=== PATIENT | male | born 1960 | race Caucasian/White ===

== ENCOUNTER 2020-04-24 19:12 | Outpatient (REF) | payer OTHER, SELFPAY ==
[2020-04-24 21:27] LABS: BUN 22 mg/dL (7-18); Calculated LDL 124 mg/dL (<100); Chloride 106 mmol/L (98-107); Cholesterol 175 mg/dL (<200); Glucose 94 mg/dL (74-106); HDL Cholesterol 32 mg/dL (40-60); Potassium 4.3 mmol/L (3.5-5.1); Sodium 142 mmol/L (136-145); Triglyceride 97 mg/dL (<150)
[2020-04-26 08:54] LABS: PSA, Screening 0.6 ng/mL (0.0-3.5)
== END 2020-04-24 19:32 ==
LOC: NCHCN 19:12
PROVIDERS: PCP Internal Medicine; Visit Provider Internal Medicine
DX: Z00.00 Encounter for general adult medical examination without abnormal findings (principal); E66.9 Obesity, unspecified; Z12.5 Encounter for screening for malignant neoplasm of prostate; Z13.1 Encounter for screening for diabetes mellitus
CPT/HCPCS: 80048; 80061; 84153

== ENCOUNTER 2020-05-13 07:03 | Outpatient (CLI) | payer OTHER, SELFPAY ==
[2020-05-15 07:52] LABS: COVID-19 RT-PCR Result NEGATIVE (Negative)
== END 2020-05-13 07:23 ==
PROVIDERS: PCP Internal Medicine; Visit Provider Surgery
DX: Z01.818 Encounter for other preprocedural examination (principal)
CPT/HCPCS: U0003

== ENCOUNTER 2020-05-17 06:10 | Day surgery (SDC) | payer OTHER, SELFPAY ==
[2020-05-17] VITALS (9 sets, daily range): BP systolic 114–147; BP diastolic 67–95; PULSE 54–68; RESP 12–25; TEMP 36.2–36.6; O2SAT 94–99
--- NOTE | 2020-05-17 05:59 | W.PM.OP ---
Date of service: 05/17/20 Time of Service: 08:26 Operative Note Operative Note DATE OF PROCEDURE: 05/17/20 PRE-OP DIAGNOSIS: Left inguinal hernia POST-OP DIAGNOSIS: other (Left direct inguinal hernia) PROCEDURE: Left inguinal hernia repair with mesh SURGEON: Mara Sanchez PARCEL WRAPPER: Concetta Yu ANESTHESIA: regional (Left TAP block), local (1% Lidocaine) and other (Gneral with LMA/ ASA 2/ Remigio Covington CRNA) ESTIMATED BLOOD LOSS: 10 PATHOLOGY: none sent COMPLICATIONS: None Patient was transported to: PACU Patient's condition: stable Implants: [employer] LOT [id number] [id number] EXP 2024-02-22 Indications: Mr. Tran is a pleasant 59-year-old gentleman who is here today for some left-sided groin pain. He states that he feels pressure on the left side especially when standing for long periods of time. Sometimes he feels a pinching sensation when walking. He has been having symptoms for about 6 months. 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 He was seen by his primary care physician who thought maybe that he had a hernia. He denies any urinary symptoms or any changes in his bowel habits. He has not had any abdominal surgeries in the past. Findings: Small direct hernia Procedure Description: After informed consent was obtained the patient was taken to the operating room and placed in a supine position. Monitors and SCDs were applied and a timeout was done. The patient's name, date of , procedure type, procedure site, allergies to medications, preoperative antibiotic, and DVT prophylaxis were all reviewed. Fire risk was assessed. Next anesthesia did a tap block on the left side under ultrasound guidance. Please see their separate dictation. Once anesthesia was done the abdomen was prepped and draped in a sterile surgical fashion. 1% lidocaine was injected into the dermis in the left lower quadrant. An incision was made with a 15 blade in the left lower quadrant. Dissection was done with cautery through the subcutaneous tissues and Saturnino's fascia down to the external oblique fascia. The external ring was identified and the external oblique fascia was opened sharply through the external ring. The cut fascia was grasped with hemostats, the cord structures were identified and a Ajo drain was placed around them. The cremasteric muscle was dissected away from the cord structures using cautery. A direct hernia was identified. There was no idirect hernia or hernia sac noted. The ileoinguinal nerve was identified and cut. A 3 x 6 piece of mesh was then cut to size and attached to the lacunar ligament using a 2-0 Prolene double armed suture. The mesh was secured laterally and medially with a 2-0 Prolene, with a running suture. The tails of the mesh were wrapped around the cord structures effectively cinching down the internal ring. Once the mesh was secured the tissues were irrigated with some normal saline. No bleeding was identified. The external oblique fascia was re-approximated using 2-0 Vicryl running suture. The Saturnino's fascia was re-approximated using interrupted 3-0 Vicryl. The dermis was re-approximated with a running 4-0 Vicryl. The skin was cleaned and dried and skin affix was applied. The patient was woken up and taken back to recovery in stable condition. There were no immediate complications. Sponge, instrument and needle counts were correct at the end of the case x2.
--- NOTE | 2020-05-17 06:01 | W.PM.DSUDISC ---
Discharge Plan Disposition Patient Disposition: HOME Condition: Stable Discharge Details Reason For Visit: L INGUINAL HERNIA Attending Provider: Mara Sanchez Primary Care Provider: Balaji Lao Home Meds and New Rx's Prescriptions: New acetaminophen [Tylenol] 325 mg tablet 650 mg PO Q6H PRN (Reason: pain) Qty: 30 RF: 0 ibuprofen 600 mg tablet 600 mg PO Q6H PRN (Reason: pain) Qty: 30 RF: 0 hydrocodone-acetaminophen [[place]] 5-325 mg tablet 1 tab PO Q6H PRNQty: 14 RF: 0 Continued Centrum Silver 1 EACH tablet 1 tab PO DAILY RF: 0 fexofenadine-pseudoephedrine 180-240 mg Tablet Extended Release 24 Hr 1 tab PO QAM PRNRF: 0 Discharge Instructions Instructions: Open Herniorrhaphy (DC) Additional Instructions: Activity at Home after surgery: 1. Make sure you walk outside at least 4 times per day 2. You should be able to climb a flight of stairs 3. No driving while in pain or taking pain medications 4. No strenuous activity or heavy lifting for 4 weeks (open surgery) Diet, Nutrition, & wound healin. Avoid alcohol until after you are recovered from your surgery 2. Make sure to eat plenty of lean protein (meat, fish, eggs, cottage cheese, beans) 3. Eat a variety of fruits and vegetables. Eat plenty of high fiber foods to avoid constipation. 4. Drink plenty of liquids to stay hydrated and avoid constipation Pain Medications: 1. Tylenol 650 mg and Ibuprofen 600 mg every 6 hours. For better results alternate both medications every 3 hours 2. If a narcotic has been prescribed take as directed only for breakthrough pain For Constipation: 1. Take Milk of Magnesia or MiraLax as needed for constipation Other: 1. You may shower daily. Do not scrub the incisions 2. Do not soak the incisions for 1 week 3. You may alternate ice and heat as needed for pain and swelling Wound Care: 1. Keep the incisions clean and dry Please call our office if you develop: 1. Fevers >101.5 2. Nausea or Vomiting 3. Worsening pain 4. Redness and thick discharge from the wounds If after hours please call the Hospital at and ask to speak to the on-call surgeon Referrals: Mara Sanchez MD [ [facility]YS[facility]IAN] - Activity:: No lifting, pulling or pushing >20 lb x 4 weeks Remove Dressings/Wound Care:: Do Not Remove Shower/Bathe:: 24 hours Diet:: As Tolerated Discharge Orders Discharge Orders: Discharge Order (Routine); Ordered 05/17/20 Ordered By: Mara Sanchez
[2020-05-17] MEDS: Lactated Ringers 1,000 ML 80 ML IV (06:50)
[2020-05-17] MEDS: ceFAZolin 2 GM/50 ML BAG IVPB (07:24)
[2020-05-17] MEDS: Bupivacaine 0.25% Pres-Free 30 ML VIAL (07:40)
[2020-05-17] MEDS: Bupivacaine LIPOSOME/PF 133 MG/10 ML VIAL IJ (07:40)
[2020-05-17] MEDS: Lidocaine 1% Multi-Dose 50 ML VIAL (07:58)
[2020-05-17] MEDS: fentaNYL 100 MCG/2 ML VIAL IVP (09:09)
[2020-05-17] MEDS: oxyCODONE 5 MG TAB PO (09:59)
== END 2020-05-17 10:52 | disposition home or self-care (01) ==
LOC: SUR 06:10
PROVIDERS: PCP Internal Medicine; Visit Provider Surgery
PROC: (CPT 49505; principal; 2020-05-17 07:30)
DX: K40.90 Unilateral inguinal hernia, without obstruction or gangrene, not specified as recurrent (principal); G89.18 Other acute postprocedural pain; F17.210 Nicotine dependence, cigarettes, uncomplicated
CPT/HCPCS: 49505; 76942; C1781; J0690; J1100; J1885; J2001; J2250; J2405; J2704; J3010

== ENCOUNTER 2021-03-24 16:24 | Emergency (ER) | payer OTHER, SELFPAY ==
[2021-03-24] VITALS (51 sets, daily range): BP systolic 107–170; BP diastolic 65–93; PULSE 59–88; RESP 10–21; TEMP 36.7; O2SAT 82–100
--- NOTE | 2021-03-24 16:15 | RT.EKG_ITS ---
APPROVED REPORT Exam: Resting ECG Reason for Exam: severe abdominal pain Patient Location: E HR:70 bpm ECG Measurements Heart Rate 70 AXIS MI 120 P -50 QRSd 93 QRS -33 QT 401 T 65 QTc 433 Conclusion Sinus or ectopic atrial rhythm...P axis (-45,135) Left axis deviation...QRS axis (-30,-90) Low voltage, extremity leads...all extremity leads <0.5mV. No STEMI. I have reviewed and interpreted ECG and agree with software generated interpretation.
--- NOTE | 2021-03-24 16:30 | DI.CT_ITS ---
Exam(s) CT ABDOMEN PELVIS W EXAM: CT ABDOMEN PELVIS W CLINICAL HISTORY: RLQ groin pain TECHNIQUE: Imaging Protocol: Axial computed tomography images with coronal and sagittal reformatted images were created and reviewed CONTRAST MATERIAL: Intravenous: Omnipaque 350 Contrast volume:100 mL Oral: No COMPARISON: No exams were available for comparison FINDINGS: ABDOMEN: Lung Bases: Normal where visualized. Liver: Normal density. No measurable mass. Portal, Superior Mesenteric, and Splenic Veins: Unremarkable. Gallbladder and Biliary Tract: No radiodense calculus or dilation. Pancreas: Normal density, no abnormal calcifications or inflammatory process. Spleen: Normal. Adrenals: No masses seen. Kidneys: There is an absent left kidney. There is a 5 mm stone at the right ureteral vesicular junct ion causing moderate hydronephrosis. No masses seen. Abdominal Aorta: Abdominal portion non-dilated. [id number]-qt-ikmngkog atherosclerosis. Bowel: No obstruction or bowel wall thickening. No evidence of acute appendicitis. There are few sca ttered diverticula but no evidence of acute diverticulitis. Peritoneal Cavity: No ascites, collection or mesenteric inflammatory response. No free air. Lymph Nodes: Within normal limits. Bones: Within normal limits for the patient's age. Soft Tissues: Small fat containing right inguinal hernia. PELVIS: Bladder: Symmetric distention, no gross wall thickening. Reproductive Organs: Mildly enlarged prostate gland. Lymph Nodes: Within normal limits. Bones: Within normal limits for the patient's age. IMPRESSION: 1. Solitary right kidney. 2. Moderate right hydronephrosis secondary to a 5 mm right UVJ stone. Given that this is the patient 's only kidney, urology consultation is recommended. RADIATION DOSE DELIVERED: 1,025.93mGy.cm Total DLP DATA REPOSITORY: All CT scans at this facility are submitted to the National Radiology Data Registry (NRDR) Dose Index Registry (DIR) with the [employer] (ACR). RADIATION OPTIMIZATION: All CT scans at this facility use at least one of these dose optimization te chniques: automated exposure control; mA and/or kV adjustment per patient size (includes targeted exa ms where dose is matched to clinical indication); or iterative reconstruction.
--- NOTE | 2021-03-24 16:30 | W.ED.GENAD ---
Discharge Plan Discharge Details Chief Complaint: Abd Prob Primary Care Provider: Balaji Lao ED Provider: Maegan Corrales Home Meds and New Rx's Prescriptions: No Action Centrum Silver 1 EACH tablet 1 tab PO DAILY RF: 0 fexofenadine-pseudoephedrine 180-240 mg Tablet Extended Release 24 Hr 1 tab PO QAM PRNRF: 0 Medical Decision Making Given patient's obstructive uropathy and a single kidney, it is recommended that patient have a stent placed, case discussed with Dr. Solorio on-call for [facility] who recommends transfer to [facility] Dr. Allen accepted patient in transfer, patient stable throughout encounter although did have oxygen desaturation to 78% after 0.5 of Dilaudid, patient is agreeable to transport and is tolerating 1 L of oxygen well, he was in no distress with this slight desaturation No evidence of secondary infection Requested urology, [facility], patient was transferred to the emergency room with likely trip to the OR for stent meds, patient will strain urine EMS called for transport, patient is full CODE STATUS No exam findings consistent with COVID-19 Differential Diagnosis Differential Diagnosis: Ureterolithiasis, inguinal hernia, appendicitis, urinary tract infections HPI General Mode of arrival: ambulatory. Date/Time Provider Initiated Documentation: 03/24/21 16:30. Limitations to Documentation: no limitations. Information obtained by: patient. HPI Narrative: This 60-year-old gentleman presents with report of right lower quadrant abdominal pain which came on abruptly today while he was stacking pavers. He denies any additional injuries. He denies any urinary complaints or hematuria. He denies any radiation of pain. He has had nausea with 2 episodes of vomiting. He denies fever or chills. He felt fine this morning. Denies known exacerbating or alleviating factors. He denies prior history of similar symptoms in the past. Related Data Home Medications Medication Instructions Recorded Confirmed Centrum Silver 1 tab PO DAILY 02/12/16 03/24/21 fexofenadine-pseudoephedrine 1 tab PO QAM PRN 05/15/20 03/24/21 Allergies Allergy/AdvReac Type Severity Reaction Status Date / Time tunafish Allergy Severe Hives Uncoded 03/24/21 16:38 Review of Systems Narrative: Review of systems obtained x7 aside from where indicated in HPI [facility] Medical History (Updated 06/06/20 @ 09:39 by Mara Sanchez MD) Abscess of groin, right Adenomatous colon polyp Left inguinal hernia Obesity Right inguinal hernia Smoker Surgical History (Updated 06/06/20 @ 09:39 by Mara Sanchez MD) Incision & Drainage, Abscess or Hematoma S/P inguinal hernia repair using synthetic patch (~05/17/20) Family History Other Essential hypertension Heart disease Prostate cancer Stroke Social History Smoking/Tobacco Use Status: Current every day Tobacco Type: cigarettes Years smoked: 40 Smoking risk assessment performed?: Yes Alcohol Intake: current Alcohol Intake frequency: a few times a week Alcohol type: beer Drug use: Never Substance use type: does not use Current gender identity: male Do you feel safe at home: Yes Do you feel safe in your relationship?: Yes Exam Const General: cooperative and in distress Chest Chest: normal inspection of the chest Resp Effort & Inspection: normal respiratory effort Auscultation: clear to auscultation bilaterally Cardio Rate: regular rate Rhythm: regular rhythm GI Other: No abdominal bruit or pulsatile mass, right inguinal and lower quadrant tenderness, no right CVA tenderness Other: No palpable hernia Skin General skin exam: no rashes or lesions noted Neuro General: patient alert and patient oriented x3
[2021-03-24] MEDS: fentaNYL 100 MCG/2 ML VIAL 50 MCG IVP (16:41)
[2021-03-24 16:55] LABS: Abs Immature Grans 0.02 10^3/uL (0.0-0.06); Absolute Basophil Count 0.02 10^3/uL (0.0-0.2); Absolute Eosinophil Count 0.03 10^3/uL (0.0-0.7); Absolute Lymphocyte Count 1.65 10^3/uL (1.2-3.4); Absolute Monocyte Count 0.78 10^3/uL (0.1-0.8); Absolute Neutrophil Count 6.82 10^3/uL (1.2-6.7); Basophils % 0.2; Eosinophils % 0.3; HCT 47.5 % (40.0-50.0); HGB 15.7 g/dL (13.5-17.5); Immature Grans % 0.2; Lymphocytes % 17.7; MCH 29.9 pg (27.0-33.0); MCHC 33.1 % (32.0-36.0); MCV 90.5 fL (80-95); MPV 10.1 fL (8.0-11.0); Monocytes % 8.4; Neutrophils % 73.2; Nucleated RBC 0 %; Platelet Count 221 10^3/uL (130-400); RBC 5.25 10^6/uL (4.36-5.78); RDW 12.9 % (11.8-14.1); RDW-SD 42.9 fL; WBC 9.32 10^3/uL (4.4-10.8)
[2021-03-24] MEDS: Normal Saline 1,000 ML 1000 ML IV (16:58)
[2021-03-24] MEDS: Ondansetron 4 MG/2 ML VIAL IVP (16:58)
[2021-03-24 17:06] LABS: Lipase 86 U/L (73-393)
[2021-03-24 17:09] LABS: ALT 21 U/L (16-63); AST 28 U/L (15-37); Albumin 3.9 g/dL (3.4-5.0); Alkaline Phosphatase 87 U/L (46-116); Anion Gap 5.4 mmol/L (3-11); BUN 20 mg/dL (7-18); Bilirubin, Total 0.5 mg/dL (0.2-1.0); CO2 29.6 mmol/L (21.0-32.0); CREATININE 1.2 mg/dL (0.70-1.30); Calcium 8.8 mg/dL (8.5-10.1); Chloride 105 mmol/L (98-107); Glucose 110 mg/dL (74-106); Potassium 3.7 mmol/L (3.5-5.1); Sodium 140 mmol/L (136-145); Total Protein 6.7 g/dL (6.4-8.2)
[2021-03-24] MEDS: Omnipaque 350 MG/ML 100 ML BTL IJ (17:40)
[2021-03-24] MEDS: Normal Saline - Diluent 50 ML VIAL IV (17:40)
[2021-03-24] MEDS: Normal Saline Flush 10 ML SYR IVP (17:41)
[2021-03-24 17:53] LABS: Bilirubin Negative (Negative); Blood Moderate (Negative); Clarity Clear (Clear); Glucose Negative (Negative); Ketones Negative (Negative); Leukocyte Esterase Negative (Negative); Nitrite Negative (Negative); Urobilinogen 0.2 EU/dL (Up TO 0.2); pH 5.5 (5-8)
[2021-03-24 18:02] LABS: Bacteria Negative HPF (Negative); C & S Indicated? No; Crystals Negative HPF (Negative); Epithelial Cells Negative HPF (Negative); Mucus Negative (Negative); WBC Negative HPF (0-5)
--- NOTE | 2021-03-24 18:26 | DI.VRAD_ITS ---
PROCEDURE INFORMATION: Exam: CT Abdomen And Pelvis With Contrast Exam date and time: 03/24/2021 4:44 PM Age: 60 years old Clinical indication: Abdominal pain; Prior surgery; Surgery type: Hernia TECHNIQUE: Imaging protocol: Computed tomography of the abdomen and pelvis with contrast. Total images: 1233 Contrast material: OMNIPAQUE 350; Contrast volume: 100 ml; Contrast route: INTRAVENOUS (IV); COMPARISON: No relevant prior studies available. FINDINGS: Lungs: Mild atelectasis in the lung bases. Heart: Heart size normal. Mediastinal space: The visualized distal esophagus is normal. Liver: Normal contour. No mass lesions. No intrahepatic biliary ductal dilatation. Gallbladder and bile ducts: Normal. No calcified stones. No ductal dilation. Pancreas: Normal. No inflammatory changes or ductal dilation. Spleen: Normal. No splenomegaly. Adrenal glands: Normal. No adrenal mass. Kidneys and ureters: Left kidney is absent, presumably congenitally absent. Moderate-severe right hydronephrosis and hydroureter. There is a 5 mm right UVJ stone best seen on axial thin series 7, image 676. Mild right perinephric stranding. No focal renal cortical lesions. The vascular enhancement pattern of the right kidney seems somewhat delayed relative to the equilibrium phase pattern of the other organs, raising concern for high-grade obstruction although there is no left kidney for comparison. Given that this is the patient's only kidney, urologic consultation recommended. Stomach and bowel: The stomach is largely contracted without gross abnormality. The small bowel is nondilated with no gross abnormality. No acute colonic abnormalities. Mild diverticulosis involving the distal colon without evidence of acute diverticulitis. Appendix: The appendix is normal in caliber and demonstrates no evidence of appendicitis. Intraperitoneal space: No free fluid or air. Vasculature: Moderate calcific atherosclerosis. No aneurysm. Lymph nodes: No adenopathy. Urinary bladder: Unremarkable as visualized. Reproductive: Mildly enlarged prostate. Bones/joints: No acute osseous abnormalities. Soft tissues: Small fatty right inguinal hernia. No bowel herniation. No gross signs of strangulation. IMPRESSION: 1. The right kidney is the patient's only kidney. The left is absent. 2. There is moderate-severe right hydronephrosis and hydroureter with a 5 mm right UVJ stone. 3. The vascular enhancement pattern of the right kidney is somewhat delayed for the equilibrium phase bolus, and in combination with the degree of hydronephrosis, this raises concern for high-grade obstruction. Given that this is the patient's only kidney, urology consultation is recommended. 4. Additional non-emergent findings detailed above. Dictated and Authenticated by: Rigo Dill MD. Ordering:JANINE Issa MD
[2021-03-24] MEDS: HYDROmorphone 2 MG/ML VIAL 0.5 MG IVP (18:42)
== END 2021-03-24 22:10 | disposition short-term general hospital (02) ==
PROVIDERS: Emergency Provider Physician Assistant; PCP Internal Medicine
DX: N20.1 Calculus of ureter (principal)
CPT/HCPCS: 36415; 80053; 83690; 93005; 96361; 96374; 96375; 96376; 99285; 74177; 81003; 81015; 85025; 93010; 99284; J2405; J3010; J3490

== ENCOUNTER 2022-12-25 15:43 | Outpatient (REF) | payer OTHER, SELFPAY ==
[2022-12-25 21:26] LABS: HCT 50.6 % (40.0-50.0); HGB 16.6 g/dL (13.5-17.5); MCH 29.8 pg (27.0-33.0); MCHC 32.8 % (32.0-36.0); MCV 91 fL (80-95); Platelet Count 196 10^3/uL (130-400); RBC 5.57 10^6/uL (4.36-5.78); RDW 12.8 % (11.8-14.1); RDW-SD 42.8 fL; WBC 8.44 10^3/uL (4.4-10.8)
[2022-12-25 21:44] LABS: ALT 20 U/L (16-63); AST 21 U/L (15-37); Albumin 3.8 g/dL (3.4-5.0); Alkaline Phosphatase 102 U/L (46-116); Anion Gap 8.2 mmol/L (3-11); BUN 22 mg/dL (7-18); Bilirubin, Total 0.5 mg/dL (0.2-1.0); CO2 29.8 mmol/L (21.0-32.0); CREATININE 0.9 mg/dL (0.70-1.30); Calcium 9.2 mg/dL (8.5-10.1); Chloride 102 mmol/L (98-107); Estimated GFR 97.17 (mL/min/1.73m2); Glucose 98 mg/dL (74-106); Potassium 4.6 mmol/L (3.5-5.1); Sodium 140 mmol/L (136-145); Total Protein 6.8 g/dL (6.4-8.2)
[2022-12-26 18:56] LABS: PSA, Screening 0.7 ng/mL (<=4.5)
== END 2022-12-25 15:44 | disposition home or self-care (01) ==
LOC: NCHCN 15:43
PROVIDERS: PCP Internal Medicine; Visit Provider Nurse Practitioner Family
DX: F17.210 Nicotine dependence, cigarettes, uncomplicated (principal); E66.8 Other obesity; Z12.5 Encounter for screening for malignant neoplasm of prostate; N28.89 Other specified disorders of kidney and ureter
CPT/HCPCS: 80053; 84153; 85027

== ENCOUNTER 2023-05-19 05:56 | Day surgery (SDC) | payer OTHER, SELFPAY ==
--- NOTE | 2023-05-18 22:59 | COLE_ITS ---
Date of service: 05/19/23 Time of Service: 08:15 Colonoscopy Report Date of procedure: 05/19/23 Pre-op diagnosis general: Adenomatou polyp/family hx CRC Post-op diagnosis procedure note: other (hemorrhoids/diverticula/polyps ) Surgeon: Luna Brown Anesthesia Type: General:No Airway Estimated blood loss (mL): 2 Pathology: other Complications: None Disposition: same day Prep: Miralax/Dulcolax Retraction Time: 12 Procedure Description: After informed consent was obtained the patient was taken to the procedure room and placed in a left decubitous position. Monitors were applied and a time out was done. The patients name, date of , procedure, allergies to medications and metal in their body was reviewed. The patient was then sedated. Once sedated and comfortable a rectal exam was done. External exam was normal. Internal exam revealed a normal sphincter tone and no palpable masses. The prostate normal. The scope was then introduced and retrofelexed. Grade 2 internal hemorrhoids x2 columns and a hemorrhoidal tag were identified. The scope was then advanced to the cecum without difficulty. The TI and appendiceal orifice were identified. The prep was BBPS 3 in all segments for a total of 9. the scope was then slowly retracted over 12 minutes. he has minor sigmoid diverticula confined to the sigmoid colon. There is no signs of active bleeding or infection. He had 2 polyps that were removed. One was a flat 1cm polyp that was removed from the cecum. In another was a 0.75 cm flat polyp in the rectum. Both polyps were removed with a cold biting forcep. All specimen is retrieved and no bleeding is noted. The mucosa is otherwise pink and healthy with a normal vascular pattern. 12 Minutes back into the rectum. The scope was removed and the patient was woken up and taken back to Same day surgery in stable condition. The patient tolerated the procedure well and there were no immediate complications. Follow up: The patient should follow up in 5 years, path pd, unless they d evelop changes in bowel habits or other new gastrointestinal complaints.
--- NOTE | 2023-05-18 23:01 | W.PM.DSUDISC ---
Date of service: 05/19/23 Time of Service: 08:19 Discharge Plan Disposition Patient Disposition: Home Condition: Good Discharge Details Reason For Visit: Colon scope Attending Provider: Luna Brown Primary Care Provider: Balaji Lao Home Meds and New Rx's Prescriptions: Continued acetaminophen 325 mg capsule 650 mg PO TID PRN Centrum Silver 1 EACH tablet 1 tab PO DAILY Discontinued bisacodyl [Dulcolax (bisacodyl)] 5 mg tablet,delayed release (DR/EC) 5 mg PO ONCE Qty: 4 0RF Rx Instructions: Take per colonoscopy instructions provided by ordering providers office polyethylene glycol 3350 17 gram/dose powder 17 g PO ONCE Qty: 238 0RF Rx Instructions: Take per colonoscopy instructions provided by ordering providers office Discharge Instructions Additional Instructions: If it was benign and her sense of heart DSU Colonoscopy Post-Op Instructions Instructions for Everyone who is given Anesthesia: For your safety, please do the following for the next twenty-four (24) hours: *Do Not operate a motor vehicle (car, truck, motorcycle, etc.) *Do Not drink alcoholic beverages or use any recreational drugs for the first 24 hours or while taking pain medications. The medications in your body may have a reaction that can be dangerous. *Do Not make any important decisions or sign any important papers. Findings: -Diverticula make sure you are moving your bowels on a regular basis and not straining to go to the bathroom.: If you have issues with constipation or straining, it is recommended that you start taking a fiber product such as Metamucil. X2 colon polyps: My office will send a letter in 2 to 3 weeks time with the biopsy results and when we want you to repeat the colonoscopy, most likely 5 years time. 1. No lifting over 20 pounds or strenuous activity for the first 24 hours after your procedure. After 24 hours there are no restrictions on your activity but you may feel fatigued for a few days. 2. After you arrive home you may have a light meal and return to your normal diet as you can tolerate it without feeling sick to your stomach. 3. You may have a bloated, gaseous feeling in your belly (abdomen) after a colonoscopy. Passing gas and belching will help. Walking or lying down on your left side with your knees flexed may relieve the discomfort. Call the office at [phone] (Office) or [phone] (Hospital) right away if you notice any of the following: a.Vomiting of blood or ?coffee ground stools?. b.Rectal bleeding 1Tbsp, blood clots or continuous bleeding. c.Severe belly (abdominal) pain. d.A hard distended belly (abdomen) and an inability to pass gas. 4. Please don?t expect to have a normal BM (bowel movement) for 2-3 days after your procedure. 5. If there are questions regarding the findings of your procedure, please contact your doctor 6. If you are unable to contact your doctor with a problem, contact the hospital at [phone]. 7. Continue all your regular medications unless directed otherwise. I understand the above instructions and have no questions. Signature of Patient or Adult Escort Name of Responsible Adult Escort Signature of Nurse Date/Time Activity:: See above Diet:: See above I inherited Discharge Orders Discharge Orders: Discharge Order (Routine); Ordered 05/19/23 Ordered By: Luna Brown DS: Diagnosis Discharge Diagnosis (1) Unintentional weight loss: Status: Acute (2) Screening for colon cancer: Status: Acute (3) Congenital single kidney: Status: Acute (4) Adenomatous colon polyp: Asessment and Plan: ? ? The patient is seen and examined after their colonoscopy.? The patient has been able to pass gas.? They are not having abdominal pain.? They have been able to tolerate liquids and a snack.? They do not have any nausea or vomiting.? They are not having any chest pain or shortness of breath.??? They are not having any rectal bleeding. Their vital signs have been stable-see nursing notes.? ? We discussed findings during their colonoscopy, and any biopsies that were done/polyps that were removed. The patient will be sent a letter with any biopsy results, and when to repeat the colonoscopy.-see discharge instructions.? ? Patient was given explicit instructions to follow-up regarding colonoscopy-refer to discharge instructions.? We reviewed resumption of medications.? Patient verbalized understanding and discharged in stable and satisfactory condition- See nursing notes.? (5) Smoker: (6) Family history of malignant neoplasm of colon in relative diagnosed when older than 50 years of age: Status: Acute (7) Diverticula of colon: Status: Acute
[2023-05-19 06:25] VITALS: BP 140/97; PULSE 65; RESP 16; TEMP 36.4; O2SAT 96
[2023-05-19] MEDS: Lactated Ringers 1,000 ML 80 ML IV (06:51)
--- NOTE | 2023-05-19 07:10 | W.ANESPRE ---
General Info Date of Service Date Performed: 05/19/23 Height: 5 ft 8 in Weight: 88.8 kg Body Mass Index (BMI): 29.7 Surgical Procedure: Operation Date: 05/19/23 07:35 Proposed Procedure Side Surgeon p Colonoscopy Luna Brown DO Actual Procedure Side Surgeon p Colonoscopy Not Applicable Luna Brown DO Pre-Op Diagnosis Post-Op Diagnosis Colon scope Meds Allergies and Home Medications Allergies Allergy/AdvReac Type Severity Reaction Status Date / Time tunafish Allergy Severe Hives Uncoded 05/19/23 06:24 Home Medication Medication Instructions Recorded lacsmhgf-lle-ikazw acid 0.4 1 tab PO DAILY 02/12/16 mg-lycopene 300 mcg-lutein 250 mcg tablet (Centrum Silver) acetaminophen 325 mg capsule 650 mg PO TID PRN 08/29/22 Current Visit Medications: Current Medications Generic Name Dose Route Start Last Admin Trade Name Freq PRN Reason Stop Dose Admin Hyoscyamine Sulfate 0.125 mg 05/19/23 10:01 Hyoscyamine 0.125 Mg Sl/Oral/Chew SL 06/18/23 10:00 DIRECTED PRN Ringer's Solution 1,000 mls @ 80 mls/hr 05/19/23 06:00 05/19/23 06:51 IV 05/19/23 23:59 80 mls/hr INFUSION LYN Administration IV Miscellaneous Supplies 1 each 05/19/23 06:00 Iv Access IV 05/19/23 23:59 DIRECTED LYN Ondansetron HCl 4 mg 05/19/23 10:01 Ondansetron 4 Mg/2 Ml Vial IVP 06/18/23 10:00 Q4H PRN PRN Nausea / Vomiting Sodium Chloride 0 ml 05/19/23 06:00 Normal Saline Flush 10 Ml Syr IV 05/19/23 23:59 PRN PRN Sodium Chloride 0 ml 05/19/23 06:00 Normal Saline 10 Ml Vial IJ 05/19/23 23:59 DIRECTED PRN Sterile Water 0 ml 05/19/23 06:00 Water,Injection,Sterile 10 Ml Vial IJ 05/19/23 23:59 DIRECTED PRN PFSH Active Problems Active Problems: Problem Status Onset Code Obesity E66.9 Ureterolithiasis N20.1 Congenital single kidney Screening for colon cancer Z12.11 Unintentional weight loss R63.4 Family history of malignant neoplasm of colon in relative diagnosed when older than 50 years of age Z80.0 Medical History Medical History Abscess of groin, right Adenomatous colon polyp History of kidney stones Left inguinal hernia Right inguinal hernia Smoker Surgical History Surgical History (Updated 05/19/23 @ 06:24 by Nicky Valdes) Hx of colonoscopy Hx of cystoscopy Incision & Drainage, Abscess or Hematoma S/P inguinal hernia repair using synthetic patch (~05/17/20) Tobacco Smoking/Tobacco Use Status: Current every day Tobacco Type: cigarettes Years smoked: 40 Alcohol Alcohol Intake: current Alcohol intake frequency: a few times a week Alcohol type: beer Substance Use Substance use: Never Substance use type: does not use Vital Signs and Lab Results Vital Signs Most Recent Vital Signs in EMR: Most Recent Vital Signs Temp Pulse Resp BP Pulse Ox 36.4 C L 65 16 140/97 H 96 05/19/23 06:25 05/19/23 06:25 05/19/23 06:25 05/19/23 06:25 05/19/23 06:25 Lab Results Blood Type / Crossmatch: No Data to Display Complete Blood Count: No Data to Display Complete Metabolic Panel: No Data to Display Liver Function Panel: No Data to Display Coagulation Panel: No Data to Display Cardiac Panel: No Data to Display Arterial Blood Gas: No Data to Display Venous Blood Gas: No Data to Display Pancreas Panel: No Data to Display Thyroid Panel: No Data to Display Infectious Disease: No Data to Display Blood Cultures: No Data to Display Toxicology Panel: No Data to Display Imaging and Studies Imaging and Studies Study information below may be from another EMR and interpreted by another provider. Please see original notes in EMR for more complete details. EKG Summary: DATE/TIME OF SERVICE: 03/24/21 1636 : 2PERFORMING LOCATION: ER APPROVED REPORT Exam: Resting ECG Reason for Exam: severe abdominal pain Patient Location: E HR:70 bpm ECG Measurements Heart Rate 70 AXIS LA 120 P -50 QRSd 93 QRS -33 QT 401 T65 QTc 433 Conclusion Sinus or ectopic atrial rhythm...P axis (-45,135) Left axis deviation...QRS axis (-30,-90) Low voltage, extremity leads...all extremity leads <0.5mV. Anesthesia Assessment and Plan Anesthesia History Personal History: No History of Anesthesia Complications Family History: No Family History of Anesthesia Complications Exercise Tolerance Exercise Tolerance: Metabolic Equivalents>4 Pertinent Negatives Pertinent Negatives: No Symptoms of GERD, No Major Cardiovascular Symptoms or Complaints and No Major Pulmonary Symptoms or Complaints Cardiac & Pulmonary Exam Cardiac Exam: Normal S1/S2 Heart Sounds Pulmonary Exam: Clear Bilateral Breath Sounds Implantable Cardiac Device Does patient have a Pacemaker or an ICD?: No Airway Exam Known Difficult Airway: No Mallampati Class: 2 Mouth Opening: Normal (> 3cm) Thyromental Distance: Greater than 3 cm Facial Hair: Full Miller Neck Range of Motion: Full ROM Neck Circumference: Normal Teeth Condition: Removable Dentures/Plates Upper and Removable Dentures/Plates Lower ASA Classification ASA Score: ASA 2 Emergency Case?: No NPO Status NPO Status: NPO Clears >2 hours, Solids >8 hours Anesthesia Plan Resuscitation Status: Full Code Anesthesia Technique: General Anesthesia Airway Planned: Natural Airway Monitors Used: Standard Monitors
[2023-05-19 07:11] VITALS: BMI 29.7
--- NOTE | 2023-05-19 07:45 | BOWEL_PTH ---
PATIENT: Alton Tran LOC: [facility] U#:[id number] AGE/SX: 62/M ROOM: RE05/19/[address]: Luna Brown : 1960 BED: DIS: 05/19/2023 SPEC #: [id number] RECD: 05/19/23 12:21 STATUS: GUILLE RERadha #: [id number] SOFIA: 05/19/23 07:[address]: Luna Brown DEPT: Surgical Specimen RECD BY: Maegan Cota ENTERED: 05/19/23 12:21 SP TYPE: Bowel OTHR DR: Balaji Lao Tissues: 1 - BIOPSY BOWEL 2 - BIOPSY BOWEL Procedures: GROSS AND MICRO LEVEL 4 Comments: [id number]
[2023-05-19 08:01] VITALS: BP 135/98; PULSE 82; RESP 20; TEMP 36.5; O2SAT 93
[2023-05-19 08:15] VITALS: BP 128/79; PULSE 74; RESP 18; TEMP 36.6; O2SAT 94
[2023-05-19 08:36] VITALS: BP 116/87; PULSE 67; RESP 18; TEMP 36.6; O2SAT 96
[2023-05-19 08:47] VITALS: BP 110/88; PULSE 66; RESP 18; TEMP 36.6; O2SAT 97
--- NOTE | 2023-05-19 09:02 | W.ANESPOSTOP ---
Postoperative Evaluation Date, Time and Location Date Performed: 05/19/23 Time Performed: 09:02 Patient Location: Day Surgery Unit Vital Signs Most Recent Imported Vital Signs: Most Recent Vital Signs Temp Pulse Resp BP Pulse Ox 36.6 C 66 18 110/88 97 05/19/23 08:47 05/19/23 08:47 05/19/23 08:47 05/19/23 08:47 05/19/23 08:47 Pain Score Most Recent Pain Score: Most Recent Pain Score Pain Level 0 05/19/23 08:47 Assessment Mental Status: Awake (Alert & Oriented to Patient Baseline) Airway and Respiratory Function: Patent airway with normal (patient baseline) respiratory exam Cardiovascular Function: Hemodynamically Stable Hydration Status: Adequately Hydrated Nausea & Vomiting: No Nausea or Vomiting Pain: Pt. Denies Any Pain Peripheral Nerve Block: Patient did not receive a nerve block Postoperative Comments:: Alton had some instances of laryngospasm and clear secretions suctioned during procedure. After procedure he coughed up a large amount of clear sputum with SpO2 92-93% on room air. he is now back to baseline, SpO2 98%, no SOB, no chest pain which he never had either of these. Educated on rare possibility of aspiration and will be sent home with appropriate instructions. He understands the plan.
== END 2023-05-19 09:17 | disposition home or self-care (01) ==
PROVIDERS: PCP Internal Medicine; Visit Provider Surgery
PROC: 0DJD8ZZ Inspection of Lower Intestinal Tract, Via Natural or Artificial Opening Endoscopic (ICD-10-PCS; CPT 45378; principal; 2023-05-19 07:30)
DX: Z12.11 Encounter for screening for malignant neoplasm of colon (principal); Z86.010 Personal history of colon polyps; Z80.0 Family history of malignant neoplasm of digestive organs; D12.8 Benign neoplasm of rectum; K57.30 Diverticulosis of large intestine without perforation or abscess without bleeding; K64.1 Second degree hemorrhoids; D12.4 Benign neoplasm of descending colon
CPT/HCPCS: 45380; 88305

== ENCOUNTER 2024-01-01 15:32 | Outpatient (REF) | payer OTHER, SELFPAY ==
[2024-01-01 14:08] LABS: HGB 16.6 g/dL (13.5-17.5); MCH 28.9 pg (27.0-33.0); MCHC 31.9 % (32.0-36.0); MCV 90 fL (80-95); MPV 10.4 fL (8.0-11.0); Platelet Count 230 10^3/uL (130-400); RBC 5.75 10^6/uL (4.36-5.78); WBC 6.41 10^3/uL (4.4-10.8)
[2024-01-01 14:35] LABS: ALT 23 U/L (16-63); AST 22 U/L (15-37); Alkaline Phosphatase 98 U/L (46-116); Anion Gap 7.2 mmol/L (3-11); BUN 18 mg/dL (7-18); Bilirubin, Total 0.4 mg/dL (0.2-1.0); CO2 31.8 mmol/L (21.0-32.0); CREATININE 0.9 mg/dL (0.70-1.30); Calcium 9.4 mg/dL (8.5-10.1); Calculated LDL 158 mg/dL (<100); Chloride 104 mmol/L (98-107); Cholesterol 215 mg/dL (<200); Estimated GFR 96.57 (mL/min/1.73m2); Glucose 91 mg/dL (74-106); HDL Cholesterol 43 mg/dL (40-60); Potassium 4.6 mmol/L (3.5-5.1); Sodium 143 mmol/L (136-145); Total Protein 6.8 g/dL (6.4-8.2); Triglyceride 73 mg/dL (<150)
[2024-01-01 22:38] LABS: PSA, Diagnostic 0.8 ng/mL (<=4.5)
== END 2024-01-01 15:33 | disposition home or self-care (01) ==
LOC: NCHCN 15:32
PROVIDERS: PCP Internal Medicine; Visit Provider Nurse Practitioner Family
DX: Z00.00 Encounter for general adult medical examination without abnormal findings (principal)
CPT/HCPCS: 80053; 80061; 85027; 84153

== ENCOUNTER → 2024-01-23 00:14 | Outpatient (CLI) | payer OTHER, SELFPAY ==
--- NOTE | 2024-01-23 | DI.CTLCSR_ITS ---
Exam(s) CT CHEST LUNG CANCER SCREEN EXAM: CT CHEST LUNG CANCER SCREEN CLINICAL HISTORY: TOBACCO DEPENDENCE F17.210 SCREENING FOR LUNG CANCER TECHNIQUE: Imaging Protocol: Axial computed tomography images with coronal and sagittal reformatted images were created and reviewed. Low dose screening protocol. COMPARISON: CT CT ABDOMEN PELVIS W from 03/24/[address] CHEST LUNG CANCER SCREEN from 05/04/[address] CHEST LUNG CANCER SCREEN from 01/21/2023 FINDINGS: Tracheobronchial tree: No bronchiectasis or mucus plugging.. Mediastinum and Brooke: No dominant adenopathy or fluid collection. Pulmonary parenchyma: No consolidation or dominant measurable mass. Mild emphysematous changes. Lung Nodules: None. Pleura: No effusion. No pneumothorax. Heart: The heart is not dilated. Mild coronary artery calcifications are seen. Aorta: Thoracic aorta non-dilated. Upper abdomen: Unremarkable. Bones: Unremarkable for age. Soft Tissues: Unremarkable. IMPRESSION: No suspicious pulmonary nodules. Lung RADS Cat 1 - Negative: No nodules and definitely benign nodules Lung-RADS 1.0 CATEGORIES: Category 0 - Prior chest CT exam(s) being located for comparison. Category 1 - Annual screening in 12 months. No nodules or definitely benign nodules. Category 2 - Annual screening in 12 months. Benign appearance. Nodules with low likelihood of becomin g active cancer. Category 3 - 6-month follow-up. Probably benign. Short-term follow-up suggested. Nodules with low lik elihood of becoming active cancer. Category 4A - 3-month follow-up and CT/PET if >8 mm in size. Suspicious finding. Findings which requi re additional testing. Category 4B - Findings which require additional testing and tissue sampling. Category 4X - Category 3 or 4 nodules with additional features or imaging findings that increases the suspicion of malignancy. Modifier S- Potentially clinically significant findings (non lung cancer) RADIATION DOSE DELIVERED: Total DLP DATA REPOSITORY: All CT scans at this facility are submitted to the National Radiology Data Registry (NRDR) Dose Index Registry (DIR) with the [employer] [place] [employer] ([employer]). RADIATION OPTIMIZATION: All CT scans at this facility use at least one of these dose optimization te chniques: automated exposure control; mA and/or kV adjustment per patient size (includes targeted exa ms where dose is matched to clinical indication); or iterative reconstruction.
--- NOTE | 2024-01-23 14:44 | DI.RAD_ITS ---
Exam(s) XR KNEE LT 3V AP,LAT,GADIEL EXAM: XR KNEE LT 3V AP,LAT,GADIEL CLINICAL HISTORY: LT KNEE PAIN,M25.562. TECHNIQUE: 2D digital imaging was performed. Three views. COMPARISON: No exams were available for comparison FINDINGS: BONES: No acute fracture is present. No bony destructive lesion is seen. Ossicle at tibial tubercle. Minimal patellar enthesophytes. JOINTS: Joint spaces are maintained. The knee is normally aligned. No joint effusion is seen. SOFT TISSUE: Normal. IMPRESSION: No acute abnormality. DATA REPOSITORY: RADIATION DOSE DELIVERED:
== END ==
PROVIDERS: PCP Internal Medicine; Visit Provider Nurse Practitioner Family
DX: M25.562 Pain in left knee (principal); Z12.2 Encounter for screening for malignant neoplasm of respiratory organs; F17.210 Nicotine dependence, cigarettes, uncomplicated
CPT/HCPCS: 71271; 73562

== ENCOUNTER 2024-04-01 16:00 | Outpatient (CLI) | payer OTHER, SELFPAY ==
--- NOTE | 2024-04-01 15:00 | DI.RAD_ITS ---
Exam(s) XR HIP LT COMPLETE AP PELVIS EXAM: XR HIP LT COMPLETE AP PELVIS CLINICAL HISTORY: pain. TECHNIQUE: 2D digital imaging was performed. COMPARISON: No exams were available for comparison FINDINGS: Two views. No evidence of pelvic nor hip fracture. No hip joint space narrowing. Additional lateral view of th e left hip does not reveal joint space narrowing nor osteophytes nor osseous lesions. IMPRESSION: No significant osseous findings in the pelvis and hips. DATA REPOSITORY: RADIATION DOSE DELIVERED:
== END 2024-04-01 16:01 | disposition home or self-care (01) ==
LOC: DIORS 16:00
PROVIDERS: PCP Nurse Practitioner Family; Visit Provider Physician Assistant
DX: R52 Pain, unspecified (principal)
CPT/HCPCS: 73502

== ENCOUNTER 2025-01-05 08:54 | Outpatient (REF) | payer OTHER, SELFPAY ==
[2025-01-05 14:40] LABS: HGB 16.3 g/dL (13.5-17.5); MCH 29.7 pg (27.0-33.0); MCHC 32.6 % (32.0-36.0); MCV 91 fL (80-95); MPV 10.9 fL (8.0-11.0); Platelet Count 210 10^3/uL (130-400); RBC 5.48 10^6/uL (4.36-5.78); RDW 12.8 % (11.8-14.1); WBC 7.05 10^3/uL (4.4-10.8)
[2025-01-05 14:47] LABS: ALT 20 U/L (16-63); AST 25 U/L (15-37); Albumin 3.8 g/dL (3.4-5.0); Alkaline Phosphatase 97 U/L (46-116); Anion Gap 6.1 mmol/L (3-11); BUN 16 mg/dL (7-18); Bilirubin, Total 0.5 mg/dL (0.2-1.0); CO2 32.9 mmol/L (21.0-32.0); CREATININE 0.9 mg/dL (0.70-1.30); Calcium 9.4 mg/dL (8.5-10.1); Chloride 107 mmol/L (98-107); Estimated GFR 95.97 (mL/min/1.73m2); Glucose 93 mg/dL (74-106); Potassium 4.7 mmol/L (3.5-5.1); Sodium 146 mmol/L (136-145); Total Protein 6.4 g/dL (6.4-8.2)
[2025-01-05 23:00] LABS: PSA, Screening 0.8 ng/mL (<=4.5)
== END 2025-01-05 08:55 | disposition home or self-care (01) ==
LOC: NCHCN 08:54
PROVIDERS: PCP Nurse Practitioner Family; Visit Provider Nurse Practitioner Family
DX: Z00.00 Encounter for general adult medical examination without abnormal findings (principal); Z12.5 Encounter for screening for malignant neoplasm of prostate
CPT/HCPCS: 80053; 84153; 85027

== ENCOUNTER 2025-07-28 20:25 | Outpatient (REF) | payer OTHER, SELFPAY ==
[2025-07-28 20:58] LABS: Abs Immature Grans 0.01 10^3/uL (0.0-0.06); HCT 46.8 % (40.0-50.0); HGB 14.9 g/dL (13.5-17.5); Immature Grans % 0.2 %; MCH 29.2 pg (27.0-33.0); MCHC 31.8 % (32.0-36.0); MCV 92 fL (80-95); MPV 10.9 fL (8.0-11.0); Platelet Count 216 10^3/uL (130-400); RBC 5.10 10^6/uL (4.36-5.78); RDW 13.0 % (11.8-14.1); RDW-SD 44.2 fL; WBC 6.15 10^3/uL (4.4-10.8)
[2025-07-28 21:11] LABS: Hemoglobin A1C 5.5 % (<5.7)
[2025-07-28 21:35] LABS: ALT 18 U/L (16-63); AST 26 U/L (15-37); Albumin 3.6 g/dL (3.4-5.0); Alkaline Phosphatase 97 U/L (46-116); Anion Gap 7.9 mmol/L (3-11); BUN 20 mg/dL (7-18); Bilirubin, Total 0.3 mg/dL (0.2-1.0); CO2 32.1 mmol/L (21.0-32.0); Calcium 8.6 mg/dL (8.5-10.1); Calculated LDL 134 mg/dL (<100); Chloride 104 mmol/L (98-107); Cholesterol 183 mg/dL (<200); Estimated GFR 95.97 (mL/min/1.73m2); Glucose 107 mg/dL (74-106); HDL Cholesterol 36 mg/dL (>or=40); Potassium 4.7 mmol/L (3.5-5.1); Sodium 144 mmol/L (136-145); TSH (W/Ref FT4) 0.64 uIU/mL (0.36-3.74); Total Protein 6.2 g/dL (6.4-8.2); Triglyceride 66 mg/dL (<150)
== END 2025-07-28 20:26 | disposition home or self-care (01) ==
LOC: NCHCN 20:25
PROVIDERS: PCP Nurse Practitioner Family; Visit Provider Nurse Practitioner Family
DX: R63.4 Abnormal weight loss (principal); E78.5 Hyperlipidemia, unspecified
CPT/HCPCS: 80053; 80061; 83036; 84443; 85025